=== PATIENT | female | born 1960 | race Caucasian/White ===

== ENCOUNTER 2016-06-08 19:33 | Inpatient (IN) | payer MEDICAID, OTHER ==
[~2016-06-08] VITALS: Ht 167.6 cm; Wt 130.6 kg
[~2016-06-08 19:33] MED LIST: HYDR12.5 PO; VALS1TAB2 PO
[2016-06-08 20:00] VITALS: BP 112/73
[2016-06-08] MEDS ORDERED: NITROGLYCERIN PACKET 1 GM PACKET TD ONE (20:00)
[2016-06-08] MEDS ORDERED: ASPIRIN 325 MG TABLET PO ONE (20:00)
[2016-06-08] MEDS ORDERED: ASPIRIN 325 MG TABLET ONE (20:02)
[2016-06-08] MEDS ORDERED: NITROGLYCERIN PACKET 1 GM PACKET ONE (20:02)
[2016-06-08 20:05] LABS: BASOPHILS # (AUTO) 0.1 /CMM (0.0-0.2); BASOPHILS % (AUTO) 0.5 % (0.0-2.0); DIFF TOTAL % 100 %; EOSINOPHILS # (AUTO) 0.1 /CMM (0.0-0.7); EOSINOPHILS % (AUTO) 0.8 % (0.0-6.0); HEMATOCRIT 38 % (33-45); HEMOGLOBIN 12.2 g/dL (11.5-14.8); LYMPHOCYTES # (AUTO) 4.5 /CMM (0.8-4.8); LYMPHOCYTES % (AUTO) 34.7 % (20.0-44.0); MEAN CORPUSCULAR HEMOGLOBIN 26 PG (26.0-33.0); MEAN CORPUSCULAR HGB CONC 32 g/dl (31.0-36.0); MEAN CORPUSCULAR VOLUME 79 fL (82-100); MONOCYTES # (AUTO) 0.5 /CMM (0.1-1.30); MONOCYTES % (AUTO) 3.7 % (2.0-12.0); NEUTROPHILS # (AUTO) 7.8 /CMM (1.8-8.9); NEUTROPHILS % (AUTO) 60.3 % (43.0-81.0); PLATELET COUNT (AUTO) 308 /CMM (150-450); RED BLOOD CELL COUNT(AUTO) 4.77 MIL/uL (4.0-5.2)
[2016-06-08 20:14] LABS: ANION GAP 11 (5-14); CALCIUM, SERUM 9.4 mg/dL (8.5-10.1); CARBON DIOXIDE 30 mmol/L (21-32); CHLORIDE 104 mmol/L (98-107); CREATININE 0.7 mg/dL (0.6-1.3); GFR 86 mL/min (>60); GLUCOSE 99 mg/dL (74-106); POTASSIUM 4.1 mmol/L (3.5-5.1); SODIUM SERUM 141 mmol/L (136-145); UREA NITROGEN, BLOOD 14 mg/dL (7-18)
[2016-06-08 20:18] LABS: INR 0.99 (0.87-1.13); PROTHROMBIN TIME 10.7 SECS (9.5-12.7)
[2016-06-08 20:23] LABS: TROPONIN I < 0.017 ng/mL (0.00-0.056)
[2016-06-08] MEDS ORDERED: ENOXAPARIN SODIUM 40 MG/0.4 ML DISP.SYRIN SQ SCH (22:30)
[2016-06-08] MEDS ORDERED: MAGNESIUM HYDROXIDE 30 ML UDC PO PRN (22:30)
[2016-06-08] MEDS ORDERED: ACETAMINOPHEN 325 MG TABLET PO PRN (22:30)
[2016-06-08] MEDS ORDERED: NITROGLYCERIN PACKET 1 GM PACKET TOP SCH (22:30)
[2016-06-08] MEDS ORDERED: Z GUARD REMEDY 2 OZ OINT TP PRN (22:30)
[2016-06-08] MEDS ORDERED: ZOLPIDEM TARTRATE 5 MG TABLET PO PRN (22:30)
[2016-06-08] MEDS ORDERED: HYDROCODONE/APAP 5/325MG 1 EACH TABLET PO PRN (22:30)
[2016-06-08] MEDS ORDERED: MORPHINE SULFATE INJ 2 MG/ML DISP.SYRIN IV PRN (22:30)
[2016-06-08] MEDS: ASPIRIN 325 MG TABLET PO SCH (22:30)
[2016-06-08] MEDS ORDERED: MAG HYDROX/AL HYDROX/SIMETH 30 ML UDC PO PRN (22:30)
[2016-06-08] MEDS ORDERED: ONDANSETRON HCL/PF 4 MG/2 ML VIAL IVP PRN (22:30)
[2016-06-08] MEDS ORDERED: ENOXAPARIN SODIUM 40 MG/0.4 ML DISP.SYRIN SQ ONE (23:31)
[2016-06-09] VITALS: BP 102/50
[2016-06-09 04:00] VITALS: BP 105/52
[2016-06-09] MEDS ORDERED: ERGO50003 PO (04:03)
[2016-06-09] MEDS ORDERED: OMEG300C3 PO (04:03)
[2016-06-09] MEDS ORDERED: OMEP10CA4 PO (04:03)
[2016-06-09] MEDS ORDERED: LOSA25TA3 PO (04:03)
[2016-06-09] MEDS ORDERED: METO25TA6 PO (04:03)
[2016-06-09] MEDS ORDERED: METF500T4 PO (04:03)
[2016-06-09] MEDS ORDERED: SIMV5TAB6 PO (04:03)
[2016-06-09 07:09] VITALS: BP 112/65
[2016-06-09 08:20] LABS: BASOPHILS # (AUTO) 0.1 /CMM (0.0-0.2); BASOPHILS % (AUTO) 0.5 % (0.0-2.0); DIFF TOTAL % 100 %; EOSINOPHILS # (AUTO) 0.1 /CMM (0.0-0.7); HEMATOCRIT 37 % (33-45); LYMPHOCYTES # (AUTO) 4.3 /CMM (0.8-4.8); LYMPHOCYTES % (AUTO) 36.7 % (20.0-44.0); MEAN CORPUSCULAR HEMOGLOBIN 26 PG (26.0-33.0); MEAN CORPUSCULAR HGB CONC 32 g/dl (31.0-36.0); MEAN CORPUSCULAR VOLUME 80 fL (82-100); MONOCYTES # (AUTO) 0.5 /CMM (0.1-1.30); MONOCYTES % (AUTO) 3.8 % (2.0-12.0); NEUTROPHILS # (AUTO) 6.9 /CMM (1.8-8.9); PLATELET COUNT (AUTO) 288 /CMM (150-450); RED BLOOD CELL COUNT(AUTO) 4.63 MIL/uL (4.0-5.2); WHITE BLOOD COUNT (AUTO) 11.8 K/uL (4.3-11.0)
[2016-06-09 08:35] LABS: CREATININE 0.6 mg/dL (0.6-1.3); PHOSPHORUS 4.9 mg/dL (2.5-4.9); POTASSIUM 3.8 mmol/L (3.5-5.1)
[2016-06-09] MEDS ORDERED: Medication Not On Formulary EA (Valsartan/Hydrochlorothiazide (Diovan Hct 80-12.5 Mg Tab PO SCH (09:00)
[2016-06-09] MEDS ORDERED: HYDROCHLOROTHIAZIDE 25 MG TABLET PO SCH (09:00)
[2016-06-09] MEDS ORDERED: PANTOPRAZOLE 40 MG TABLET.DR PO SCH (09:02)
[2016-06-09] MEDS ORDERED: NITROGLYCERIN PACKET 1 GM PACKET TOP SCH (09:05)
[2016-06-09] MEDS: ASPIRIN 325 MG TABLET PO SCH (09:51)
[2016-06-09 09:52] VITALS: BP 112/65
[2016-06-09] MEDS ORDERED: CARVEDILOL 3.125 MG TABLET PO SCH (10:00)
[2016-06-09] MEDS ORDERED: Magnesium 1GM/D5W 100ML PREMIX 100 ML IV SCH (10:30)
[2016-06-09] MEDS ORDERED: ENOXAPARIN SODIUM 40 MG/0.4 ML DISP.SYRIN SQ SCH (21:00)
== END 2016-06-09 15:45 | disposition home or self-care (01) | DRG 203 ==
LOC: ER 19:35 → TELE 21:26 → MED 06-09 11:16
PROVIDERS: ADMIT Internal Medicine; ATTEND Internal Medicine
DX: M94.0 Chondrocostal junction syndrome [Tietze] (principal); E43 Unspecified severe protein-calorie malnutrition; I11.9 Hypertensive heart disease without heart failure; R07.9 Chest pain, unspecified; E11.9 Type 2 diabetes mellitus without complications; F17.210 Nicotine dependence, cigarettes, uncomplicated; E66.9 Obesity, unspecified; E78.00 Pure hypercholesterolemia, unspecified; E83.42 Hypomagnesemia
CPT/HCPCS: 36415; 71010-TC; 80048-TC; 80061-TC; 83735-TC; 83880; 84100-TC; 84484-TC; 85025-TC; 85730-TC; 87081-TC; 93307-TC; 94799-TC; A4606; J1650; Z7610

== ENCOUNTER 2017-01-01 02:49 | Emergency (ER) | payer MEDICAID, OTHER ==
[~2017-01-01] VITALS: Ht 167.6 cm; Wt 131.5 kg
[~2017-01-01 02:49] MED LIST changes: +ERGO50003 PO; +LOSA25TA3 PO; +METF500T4 PO; +METO25TA6 PO; +OMEG300C3 PO; +OMEP10CA4 PO; +SIMV5TAB6 PO; -VALS1TAB2 PO
[2017-01-01 02:58] VITALS: BP 154/81
[2017-01-01] MEDS ORDERED: ACETAMINOPHEN ES 500 MG TABLET ONE (03:17)
[2017-01-01] MEDS ORDERED: ACETAMINOPHEN 325 MG TABLET PO ONE (03:30)
== END 2017-01-01 04:42 | disposition home or self-care (01) ==
LOC: ER 02:53
DX: M17.9 Osteoarthritis of knee, unspecified (principal); E11.9 Type 2 diabetes mellitus without complications; G89.29 Other chronic pain; I10 Essential (primary) hypertension; F17.200 Nicotine dependence, unspecified, uncomplicated
CPT/HCPCS: A4606; Z7610

== ENCOUNTER 2017-09-04 21:46 | Emergency (ER) | payer OTHER ==
[~2017-09-04] VITALS: Ht 165.1 cm; Wt 113.4 kg
[~2017-09-04 21:46] MED LIST changes: +ERGO500014 PO; -ERGO50003 PO; +METF-440 PO; -METF500T4 PO
[2017-09-04 22:14] VITALS: BP 149/83
--- NOTE | 2017-09-04 22:18 | NUR ---
PATIENT TO ED DT SP FALL-- PATIENT REPORTED HITTING THE BACK OF HER HEAD, NO KO REPORTED. C/O LEFT WRIST PAIN AND LEFT LEG PAIN. PATIENT IS AWAKE AND ALERT. VSS
[2017-09-04] MEDS ORDERED: HYDROCODONE/APAP 5/325MG 1 EACH TABLET ONE (22:26)
[2017-09-04] MEDS ORDERED: HYDROCODONE/APAP 5/325MG 1 EACH TABLET PO ONE (22:30)
== END 2017-09-05 00:43 | disposition home or self-care (01) ==
LOC: ER 21:47
DX: S63.502A Unspecified sprain of left wrist, initial encounter (principal); S80.02XA Contusion of left knee, initial encounter; S70.02XA Contusion of left hip, initial encounter; I10 Essential (primary) hypertension; E11.9 Type 2 diabetes mellitus without complications; M19.90 Unspecified osteoarthritis, unspecified site; F17.200 Nicotine dependence, unspecified, uncomplicated; Z79.84 Long term (current) use of oral hypoglycemic drugs; W05.0XXA Fall from non-moving wheelchair, initial encounter; Y93.89 Activity, other specified; Y92.89 Other specified places as the place of occurrence of the external cause; Y99.8 Other external cause status
CPT/HCPCS: 73110; 73502; 73564-TC; A4606; Z7610

== ENCOUNTER 2018-08-13 07:30 | Emergency (ER) | payer MEDICAID, OTHER ==
[~2018-08-13] VITALS: Ht 167.6 cm; Wt 126.1 kg
[~2018-08-13 07:30] MED LIST changes: +SIMV5TAB59 PO; -SIMV5TAB6 PO
--- NOTE | 2018-08-13 07:45 | NUR ---
ANABELA FROM HOME FOR WORSENING LOWER BACK PAIN R/T RLE. PATIENT A/OX4, DAUGHTER AT BEDSIDE, BREATHING EVEN AND UNLABORED, IN ROOM AIR AND SATTING WELL. PATIENT PLACED ON MONITOR AND AWAITING FOR MD BONNER.
[2018-08-13] MEDS ORDERED: ONDANSETRON HCL/PF 4 MG/2 ML VIAL IVP ONE (08:00)
[2018-08-13] MEDS ORDERED: MORPHINE SULFATE INJ 2 MG/ML DISP.SYRIN IV ONE (08:00)
[2018-08-13] MEDS ORDERED: MORPHINE SULFATE INJ 4 MG/ML DISP.SYRIN ONE (08:00)
[2018-08-13] MEDS ORDERED: methylPREDNISolone SOD SUCC 125 MG/2ML VIAL ONE (08:00)
[2018-08-13] MEDS ORDERED: methylPREDNISolone SOD SUCC 125 MG/2ML VIAL IV ONE (08:00)
[2018-08-13] MEDS ORDERED: ONDANSETRON HCL/PF 4 MG/2 ML VIAL ONE (08:00)
[2018-08-13 09:31] LABS: BASOPHILS # (AUTO) 0.1 /CMM (0.0-0.2); BASOPHILS % (AUTO) 0.7 % (0.0-2.0); EOSINOPHILS % (AUTO) 0.9 % (0.0-6.0); HEMATOCRIT 38 % (33-45); HEMOGLOBIN 12.2 g/dL (11.5-14.8); LYMPHOCYTES # (AUTO) 3.5 /CMM (0.8-4.8); LYMPHOCYTES % (AUTO) 39.9 % (20.0-44.0); MEAN CORPUSCULAR HGB CONC 32 g/dl (31.0-36.0); MEAN CORPUSCULAR VOLUME 80 fL (82-100); MONOCYTES # (AUTO) 0.3 /CMM (0.1-1.30); MONOCYTES % (AUTO) 3.3 % (2.0-12.0); NEUTROPHILS # (AUTO) 4.9 /CMM (1.8-8.9); NEUTROPHILS % (AUTO) 55.2 % (43.0-81.0); PLATELET COUNT (AUTO) 274 /CMM (150-450); RED BLOOD CELL COUNT(AUTO) 4.77 MIL/uL (4.0-5.2); WHITE BLOOD COUNT (AUTO) 8.8 K/uL (4.3-11.0)
[2018-08-13 09:37] LABS: CALCIUM, SERUM 8.9 mg/dL (8.5-10.1); CREATININE 0.6 mg/dL (0.6-1.3); POTASSIUM 4.2 mmol/L (3.5-5.1)
[2018-08-13 09:43] LABS: ALBUMIN 3.1 g/dL (3.4-5.0); BILIRUBIN,TOTAL 0.2 mg/dL (0.2-1.0)
[2018-08-13] MEDS ORDERED: KETOROLAC TROMETHAMINE INJ 30 MG/ML VIAL ONE (09:56)
[2018-08-13] MEDS ORDERED: KETOROLAC TROMETHAMINE INJ 60 MG/2 ML VIAL IM ONE (10:00)
[2018-08-13] MEDS ORDERED: METO-357 PO (11:07)
[2018-08-13] MEDS ORDERED: ERGO400C PO (11:07)
[2018-08-13] MEDS ORDERED: LOSA50TA39 PO (11:07)
[2018-08-13] MEDS ORDERED: OMEP20CA10 PO (11:07)
[2018-08-13] MEDS ORDERED: SIMV40TA5 PO (11:07)
--- NOTE | 2018-08-13 11:10 | NUR ---
SPOKE WITH [employer], WILL CALL BACK FOR A BED AT [facility]. FACESHEET AND CLINICALS WILL BE FAXED.
[2018-08-13 11:15] LABS: APPEARANCE,URINE Clear (CLEAR); BILIRUBIN,URINE Negative (NEGATIVE); BLOOD, URINE Negative Ery/uL (NEGATIVE); COLOR,URINE Yellow (YELLOW); KETONES,URINE Negative (NEGATIVE); LEUKOCYTE ESTERASE ,URINE Negative (NEGATIVE); NITRITE, URINE Negative (NEGATIVE); PH,URINE 5.5 (5.0-8.0); PROTEIN,URINE Negative (NEGATIVE); UGLUCOSE Negative (NEGATIVE); UROBILINOGEN,URINE 0.2 EU/dL (0.2)
--- NOTE | 2018-08-13 12:35 | NUR ---
patient and daughter [facility]. aware.
--- NOTE | 2018-08-13 13:02 | NUR ---
Patient discharged to home in stable condition. Written and verbal after care instructions given. Patient verbalizes understanding of instruction. Peripheral IV removed. Patient assisted via wheelchair.
[2018-08-13 13:05] VITALS: BP 140/95
== END 2018-08-13 13:06 | disposition home or self-care (01) ==
LOC: ER 07:32
DX: M48.061 Spinal stenosis, lumbar region without neurogenic claudication (principal); I10 Essential (primary) hypertension; E11.9 Type 2 diabetes mellitus without complications; E78.00 Pure hypercholesterolemia, unspecified; F17.200 Nicotine dependence, unspecified, uncomplicated
CPT/HCPCS: 36415; 80048; 80076; 81001; 85025; 87086; 93971; 96374; 96375; 99285; A4606; J1885; J2270; J2405; J2930; 81000-TC

== ENCOUNTER 2023-03-09 13:26 | Emergency (ER) | payer MEDICAID ==
[~2023-03-09] VITALS: Ht 167.6 cm; Wt 120.2 kg
[~2023-03-09 13:26] MED LIST changes: +ERGO400C PO; -ERGO500014 PO; -HYDR12.5 PO; -LOSA25TA3 PO; +LOSA50TA39 PO; +METO-357 PO; -METO25TA6 PO; -OMEG300C3 PO; -OMEP10CA4 PO; +OMEP20CA15 PO; +SIMV-49 PO; -SIMV5TAB59 PO
[2023-03-09] MEDS ORDERED: KETOROLAC TROMETHAMINE INJ 30 MG/ML VIAL ONE (14:18)
[2023-03-09] MEDS ORDERED: HYDROMORPHONE 1 MG/1 ML DISP.SYRIN ONE (14:18)
[2023-03-09] MEDS ORDERED: ONDANSETRON 4 MG TAB.RAPDIS ONE (14:19)
[2023-03-09] MEDS ORDERED: HYDROMORPHONE 1 MG/1 ML DISP.SYRIN IM ONE (14:30)
[2023-03-09] MEDS ORDERED: ONDANSETRON 4 MG TAB.RAPDIS SL ONE (14:30)
[2023-03-09] MEDS ORDERED: KETOROLAC TROMETHAMINE INJ 60 MG/2 ML VIAL IM ONE (14:30)
[2023-03-09] MEDS ORDERED: HYDR-4303 PO (16:00)
[2023-03-09] MEDS ORDERED: CARI350T PO (16:00)
[2023-03-09 16:26] VITALS: BP 140/85; TEMP 98.1; O2SAT 100
== END 2023-03-09 16:25 | disposition home or self-care (01) ==
LOC: ER 14:23
DX: M54.50 Low back pain, unspecified (principal); I10 Essential (primary) hypertension; E11.9 Type 2 diabetes mellitus without complications; G89.29 Other chronic pain; Z79.84 Long term (current) use of oral hypoglycemic drugs; Z79.899 Other long term (current) drug therapy
CPT/HCPCS: 99285; 72131; 96372 ×2; J1885; Q0162; J1170